=== PATIENT | female | born 1985 | race Caucasian/White ===

== ENCOUNTER 2019-12-14 20:02 | Emergency (ER) | payer BC ==
[2019-12-14 20:43] VITALS: BP 134/88; PULSE 79
[2019-12-14] MEDS ORDERED: Bacitracin Oint 1 GM U/D Packet TOP ONE (21:05)
--- NOTE | 2019-12-14 21:12 | EDM.PDOC ---
ED HPI GENERAL MEDICAL PROBLEM - General Chief Complaint: General Stated Complaint: FISH HOOK RT THUMB Time Seen by Provider: 12/14/19 20:29 Source of Information: Reports: Patient, Family (here with Dad. ) History Limitations: Reports: No Limitations - History of Present Illness INITIAL COMMENTS - FREE TEXT/NARRATIVE: chief complaint: fish hook to right thumb reports was going to go fishing and got a rappula hook in the right thumb. last Tdap this year Onset: Today Onset Date: 12/14/19 Duration: Hour(s): Location: Reports: Upper Extremity, Right (right thumb) Quality: Reports: Other (pain at site of fishhook) Severity: Mild Improves with: Reports: Immobilization Worsens with: Reports: Movement Context: Reports: Other (fish hook to thumb) Associated Symptoms: Reports: No Other Symptoms Right Finger-Thumb Pain Score (Numeric/FACES): 6 - Related Data Allergies Allergy/AdvReac Type Severity Reaction Status Date / Time bupropion HCl Allergy Hives Verified 12/14/19 20:37 [From Wellbutrin] Home Meds: Home Meds Levothyroxine 175 mcg PO ACBRK 03/31/15 [History] Past Medical History - Past Health History Medical/Surgical History: Denies 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: Social & Family History - Tobacco Use Smoking Status *Q: Never Smoker - Caffeine Use Caffeine Use: Reports: None - Recreational Drug Use Recreational Drug Use: No ED ROS GENERAL - Review of Systems Review Of Systems: See Below Constitutional: Reports: Other (fish hook to right thumb, injury happened prior to arrival at ER.) Skin: Reports: Other (fish hook to right thumb) Hematologic/Lymphatic: Reports: No Symptoms Immunologic: Reports: No Symptoms ED EXAM, GENERAL - Physical Exam Exam: See Below Exam Limited By: No Limitations General Appearance: Alert, WD/WN, No Apparent Distress Extremities: Other (right thumb with fish hook - single katelin in the subcut. ) Neurological: Alert, Oriented, Normal Cognition Psychiatric: Normal Affect, Normal Mood Skin Exam: Warm, Other (fish hook to right thumb- scant bleeding.) Lymphatic: No Adenopathy Foreign Body Removal - Pre-Procedure Indication: fish hook noted to subcut tissue of the right thumb. Consent Obtained: Reports: Patient Performing Doctor:: Rosemary Lyon - Post-Procedure Findings:: fish hook to right thumb cleanse with Betadine injected with lidocaine 1% without eppi anesthesia obtained push katelin thru the skin, clipped, and retracted the hook. scant bleeding washed hands with soap and water, Nurse applied bacitracin ointment and bandage. Ms. Ferrara tolerated procedure without any complications. Complications:: No (fish hook removed without difficulty) Course - Vital Signs Last Recorded V/S: Last Vital Signs Temp 36.6 C 12/14/19 20:38 Pulse 79 12/14/19 20:38 Resp 16 12/14/19 20:38 BP 134/88 12/14/19 20:38 Pulse Ox 97 12/14/19 20:38 - Orders/Labs/Meds Meds: Medications Discontinued Medications Generic Name Dose Route Start Last Admin Trade Name Jenn PRN Reason Stop Dose Admin Bacitracin 1 dose 12/14/19 21:05 12/14/19 21:10 Bacitracin Oint 1 Gm TOP 12/14/19 21:06 1 dose ONETIME ONE Administration Lidocaine HCl 5 ml 12/14/19 20:46 12/14/19 20:51 Xylocaine-Mpf 1% INJECT 12/14/19 20:47 5 ml ONETIME ONE Administration - Re-Assessments/Exams Free Text/Narrative Re-Assessment/Exam: 12/14/19 fish hook removal verbal consent given by patient Dorota Ferrara discussed fish hook removal reports no allergies to Lidocaine, last Tdap 2019 fish hook removed without complications bandage applied by Nurse Departure - Departure Time of Disposition: 21:07 Disposition: Home, Self-Care 01 Condition: Good Clinical Impression: Fish hook injury of right thumb Qualifiers: Encounter type: initial encounter Qualified Code(s): S69.91XA - Unspecified injury of right wrist, hand and finger(s), initial encounter - Discharge Information *PRESCRIPTION DRUG MONITORING PROGRAM REVIEWED*: Not Applicable *COPY OF PRESCRIPTION DRUG MONITORING REPORT IN PATIENT RENATO: Not Applicable Referrals: PCP,None [Primary Care Provider] - Forms: ED Department Discharge Care Plan Goals: Fish hook to right thumb -fish hook removal from right thumb -apply antibiotic ointment to puncture wound daily x 3 days -apply bandage daily for 3 days then keep clean and dry -monitor for signs of infection- redness, pain, discharge, fever, chills, not improved or any concerns return to ER Return to ER if not improved or symptoms worsen. Sepsis Event Note (ED) - Evaluation Sepsis Screening Result: No Definite Risk - Focused Exam Vital Signs: Vital Signs Temp Pulse Resp BP Pulse Ox 12/14/19 20:38 36.6 C 79 16 134/88 97 - Problem List & Annotations (1) Fish hook injury of right thumb SNOMED Code(s): 826531549 Code(s): S69.91XA - UNSP INJURY OF RIGHT WRIST, HAND AND FINGER(S), INIT ENCNTR Status: Acute Priority: High Current Visit: Yes Qualifiers: Encounter type: initial encounter Qualified Code(s): S69.91XA - Unspecified injury of right wrist, hand and finger(s), initial encounter - Problem List Review Problem List Initiated/Reviewed/Updated: Yes - Assessment/Plan Plan: Fish hook to right thumb -fish hook removal from right thumb -apply antibiotic ointment to puncture wound daily x 3 days -apply bandage daily for 3 days then keep clean and dry -monitor for signs of infection- redness, pain, discharge, fever, chills, not improved or any concerns return to ER Return to ER if not improved or symptoms worsen.
== END 2019-12-14 21:22 | disposition home or self-care (01) ==
LOC: JP.ED 20:02
DX: S60.351A Superficial foreign body of right thumb, initial encounter (principal); Z88.8 Allergy status to other drugs, medicaments and biological substances; W45.8XXA Other foreign body or object entering through skin, initial encounter
CPT/HCPCS: 99282; J2001